=== PATIENT | male | born 1990 | race Caucasian/White ===

== ENCOUNTER 2018-05-30 15:22 | Emergency (ER) | payer OTHER ==
[~2018-05-30] VITALS: Ht 180.3 cm; Wt 77.1 kg
[2018-05-30] MEDS ORDERED: PREDNISONE 20 M20 MG PO (17:29)
[2018-05-30] MEDS ORDERED: NORCO 5-325 TA1 EACH PO (17:29)
[2018-05-30 17:40] VITALS: BP 145/83
== END 2018-05-30 17:41 | disposition home or self-care (01) ==
LOC: ER 15:22
DX: M65.4 Radial styloid tenosynovitis [de Quervain] (principal)

== ENCOUNTER 2020-09-03 19:23 | Emergency (ER) | payer OTHER ==
[~2020-09-03] VITALS: Ht 180.3 cm; Wt 79.4 kg
[~2020-09-03 19:23] MED LIST: NORCO 5-325 TA1 EACH PO; PREDNISONE 20 M20 MG PO
[2020-09-03] MEDS ORDERED: NOHOMEMEDICATIONS (19:32)
[2020-09-03] MEDS ORDERED: NAPROSYN500 MG PO (20:13)
[2020-09-03] MEDS ORDERED: TYLENOL325 M1 PO (20:13)
[2020-09-03 20:25] VITALS: BP 125/63
== END 2020-09-03 20:25 | disposition home or self-care (01) ==
LOC: ER 19:23
DX: M20.012 Mallet finger of left finger(s) (principal); F17.210 Nicotine dependence, cigarettes, uncomplicated; Z88.5 Allergy status to narcotic agent

== ENCOUNTER 2021-03-15 13:11 | Emergency (ER) | payer OTHER ==
[~2021-03-15] VITALS: Ht 180.3 cm; Wt 83.9 kg
[~2021-03-15 13:11] MED LIST changes: +NAPROSYN500 MG PO; +NOHOMEMEDICATIONS; +TYLENOL325 M1 PO
[2021-03-15 13:14] VITALS: BP 148/90
== END 2021-03-15 14:00 | disposition home or self-care (01) ==
LOC: ER 13:11
DX: K02.9 Dental caries, unspecified (principal); F31.9 Bipolar disorder, unspecified; F41.9 Anxiety disorder, unspecified; F17.210 Nicotine dependence, cigarettes, uncomplicated; Z90.49 Acquired absence of other specified parts of digestive tract; Z79.891 Long term (current) use of opiate analgesic; Z79.899 Other long term (current) drug therapy; Z88.5 Allergy status to narcotic agent

== ENCOUNTER 2021-05-31 14:33 | Emergency (ER) | payer OTHER ==
[~2021-05-31] VITALS: Ht 180.3 cm; Wt 90.7 kg
[2021-05-31] MEDS ORDERED: IBUPROFEN 600600 M1 PO (21:06)
[2021-05-31] MEDS ORDERED: NORCO5 PO (21:06)
[2021-06-01 07:58] VITALS: BP 104/87
== END 2021-05-31 21:28 | disposition home or self-care (01) ==
LOC: ER 14:33
DX: M79.671 Pain in right foot (principal); M25.571 Pain in right ankle and joints of right foot; F31.9 Bipolar disorder, unspecified; F41.9 Anxiety disorder, unspecified; F17.210 Nicotine dependence, cigarettes, uncomplicated; Z90.89 Acquired absence of other organs; Z79.899 Other long term (current) drug therapy; Z88.5 Allergy status to narcotic agent